=== PATIENT | male | born 1980 | race Caucasian/White ===

== ENCOUNTER 2020-03-16 06:26 | Day surgery (SDC) | payer OTHER ==
[~2020-03-16] VITALS: Ht 188 cm; Wt 85.2 kg
--- NOTE | 2020-03-16 08:06 | NUR ---
03/16/20 0806 Zohreh Rogers 1 MG EPI ADDED TO THE FIRST BAG OF LR FOR IRRIGATION. 50 MLS OF SHOULDER COCKTAIL INJECTED BY DR. CURRY FOR PAIN CONTROL. SEE DR. CURRY ORDER ON CHART.
== END 2020-03-16 11:29 | disposition home or self-care (01) ==
LOC: ORSCSDS 06:26
PROVIDERS: Orthopaedic Surgery
PROC: 0LQ14ZZ Repair Right Shoulder Tendon, Percutaneous Endoscopic Approach (ICD-10-PCS; principal; 2020-03-16 07:30)
PROC: 0LS34ZZ Reposition Right Upper Arm Tendon, Percutaneous Endoscopic Approach (ICD-10-PCS; principal; 2020-03-16 07:30)
PROC: 0RNJ4ZZ Release Right Shoulder Joint, Percutaneous Endoscopic Approach (ICD-10-PCS; principal; 2020-03-16 07:30)
DX: M75.121 Complete rotator cuff tear or rupture of right shoulder, not specified as traumatic (principal); M75.41 Impingement syndrome of right shoulder; S46.101A Unspecified injury of muscle, fascia and tendon of long head of biceps, right arm, initial encounter
CPT/HCPCS: A9270; C1713; J0171; J0690; J0735; J1100; J1885; J2250; J2405; J2704; J2710; J2795; J3010; J7120

== ENCOUNTER 2020-08-10 06:13 | Day surgery (SDC) | payer OTHER ==
[~2020-08-10] VITALS: Ht 188 cm; Wt 94.3 kg
--- NOTE | 2020-08-10 08:02 | NUR ---
08/10/20 0802 Zohreh Rogers 1 MG EPI ADDED TO THE FIRST BAG OF LR PER ORDER FOR IRRIGATION.
== END 2020-08-10 11:25 | disposition home or self-care (01) ==
LOC: ORSCSDS 06:13
PROVIDERS: Orthopaedic Surgery
PROC: 0LQ24ZZ Repair Left Shoulder Tendon, Percutaneous Endoscopic Approach (ICD-10-PCS; principal; 2020-08-10 07:30)
PROC: 0RNK4ZZ Release Left Shoulder Joint, Percutaneous Endoscopic Approach (ICD-10-PCS; principal; 2020-08-10 07:30)
DX: M75.122 Complete rotator cuff tear or rupture of left shoulder, not specified as traumatic (principal); M75.42 Impingement syndrome of left shoulder; M75.22 Bicipital tendinitis, left shoulder
CPT/HCPCS: A9270; C1713; J0171; J0690; J0735; J1100; J1885; J2250; J2405; J2704; J2795; J3010; J7120